=== PATIENT | male | born 1970 | race African-American/Black ===

== ENCOUNTER 2018-12-24 04:49 | Emergency (ER) | payer MEDICAID ==
[~2018-12-24] VITALS: Ht 193 cm; Wt 105.0 kg
[~2018-12-24 04:49] MED LIST: AMLO5TAB88 PO; CLON0.1T PO; GLIP5TAB12 MT; MAX PO; METF-416 MT; METO-539 PO; PRAV20TA PO
[2018-12-24] MEDS ORDERED: ASPIRIN 81MG TABLET PO ONE (06:30)
[2018-12-24] MEDS ORDERED: NITROGLYCERIN 0.4MG TABLET SL SL PRN (06:30)
[2018-12-24 07:12] LABS: BASOPHILS % 1.3 % (0.0-2.0); EOSINOPHILS % 3.5 % (0.0-5.0); HEMATOCRIT. 45.3 % (42.0-52.0); HEMOGLOBIN. 15.7 g/dL (14.0-18.0); LYMPHOCYTES % 22.5 % (20.0-50.0); MEAN CORPUSCULAR VOLUME 89.4 fL (80.0-94.0); MEAN PLATELET VOLUME 9.7 fl (7.4-10.4); MONOCYTES % 4.7 % (2.0-8.0); PLATELET 165 x1000/uL (130-400); RED BLOOD CELL COUNT 5.07 mill/uL (4.7-6.1); RED CELL DISTRIBUTION WIDTH 12.9 % (11.6-14.6)
[2018-12-24 07:13] LABS: CHLORIDE 105 mEq/L (98-107)
[2018-12-24] MEDS ORDERED: HYDROCODONE/ACETAMINOPHEN 5/325MG TABLET PO ONE (07:45)
[2018-12-24 11:17] VITALS: BP 157/98
== END 2018-12-24 11:19 | disposition home or self-care (01) ==
LOC: ER 04:49
DX: R07.89 Other chest pain (principal); E11.65 Type 2 diabetes mellitus with hyperglycemia; I10 Essential (primary) hypertension; M19.90 Unspecified osteoarthritis, unspecified site; F12.10 Cannabis abuse, uncomplicated; F17.210 Nicotine dependence, cigarettes, uncomplicated; Z79.84 Long term (current) use of oral hypoglycemic drugs
CPT/HCPCS: 36415; 71045; 83880; 84484; 93005; 99284

== ENCOUNTER 2019-10-07 18:35 | Inpatient (IN) | payer MEDICAID ==
[~2019-10-07] VITALS: Ht 193 cm; Wt 108.9 kg
[2019-10-08 00:21] LABS: CHLORIDE 104 mEq/L (98-107)
[2019-10-08 00:30] LABS: BASOPHILS % 0.9 % (0.0-2.0); EOSINOPHILS % 3.5 % (0.0-5.0); HEMATOCRIT. 39.6 % (42.0-52.0); HEMOGLOBIN. 14.1 g/dL (14.0-18.0); LYMPHOCYTES % 23.7 % (20.0-50.0); MEAN CORPUSCULAR HEMOGLOBIN 31.5 pg (28.0-32.0); MEAN CORPUSCULAR VOLUME 88.3 fL (80.0-94.0); MEAN PLATELET VOLUME 10.1 fl (7.4-10.4); MONOCYTES % 7.2 % (2.0-8.0); NEUTROPHILS % 64.7 % (40.0-76.0); PLATELET 160 x1000/uL (130-400); RED BLOOD CELL COUNT 4.48 mill/uL (4.7-6.1); RED CELL DISTRIBUTION WIDTH 13.2 % (11.6-14.6)
[2019-10-08] MEDS ORDERED: ASPIRIN 81MG TABLET PO NR (00:45)
[2019-10-08] MEDS: SODIUM CHLORIDE 0.9% 1,000 ML IV NR ×2 (01:35→03:17)
[2019-10-08] MEDS ORDERED: HYDROCODONE/ACETAMINOPHEN 5/325MG TABLET PO PRN ×2 (05:30→06:00)
[2019-10-08] MEDS ORDERED: INSULIN LISPRO 100 UNITS/ML SUBCUT NR (05:30)
[2019-10-08] MEDS ORDERED: ZOLPIDEM TARTRATE 5MG TABLET PO PRN (05:45)
[2019-10-08] MEDS ORDERED: DEXTROSE 50% WATER 50ML SYRINGE IV PRN (05:45)
[2019-10-08 05:55] VITALS: BP 167/105
[2019-10-08] MEDS: BLOOD SUGAR DIAGNOSTIC STRIP TEST SCH ×4 (07:40→21:57)
[2019-10-08 08:00] VITALS: BP 155/91
[2019-10-08] MEDS: AMLODIPINE 5MG TABLET PO SCH ×2 (08:56→22:34)
[2019-10-08] MEDS: METOPROLOL TARTRATE 50MG TABLET PO SCH ×2 (08:58→22:34)
[2019-10-08] MEDS: CLONIDINE 0.1MG TABLET PO SCH ×2 (08:58→22:34)
[2019-10-08] MEDS ORDERED: ENOXAPARIN 30MG/0.3ML SYR SUBCUT SCH (09:00)
[2019-10-08] MEDS: TRIAMTERENE/HYDROCHLOROTHIAZID 75/50MG TABLET PO SCH (09:00)
[2019-10-08] MEDS: INSULIN LISPRO 100 UNITS/ML SUBCUT SCH ×4 (09:12→22:31)
[2019-10-08 12:00] VITALS: BP 128/85
[2019-10-08] MEDS: INSULIN GLARGINE UD 100 UNITS/ML SYR SUBCUT SCH ×2 (12:50→22:30)
[2019-10-08 16:00] VITALS: BP 142/91
[2019-10-08] MEDS ORDERED: REGADENOSON 0.4 MG/5 ML IV NR (17:00)
[2019-10-08 20:00] VITALS: BP 143/96
[2019-10-08] MEDS: BUDESONIDE 0.5MG/2ML NEB HHN SCH (20:27)
[2019-10-08] MEDS: IPRATROPIUM/ALBUTEROL 0.5-3(2.5)MG/3ML NEB HHN PRN (20:27)
[2019-10-08] MEDS: ENOXAPARIN 40MG/0.4ML SYR SUBCUT SCH (22:35)
[2019-10-09] VITALS: BP 146/92
[2019-10-09 04:00] VITALS: BP 144/103
[2019-10-09] MEDS: BLOOD SUGAR DIAGNOSTIC STRIP TEST SCH ×2 (07:58→12:44)
[2019-10-09 08:00] VITALS: BP 128/84
[2019-10-09] MEDS: INSULIN LISPRO 100 UNITS/ML SUBCUT SCH ×2 (08:44→15:22)
[2019-10-09] MEDS: AMLODIPINE 5MG TABLET PO SCH (08:45)
[2019-10-09] MEDS: TRIAMTERENE/HYDROCHLOROTHIAZID 75/50MG TABLET PO SCH (08:45)
[2019-10-09] MEDS: CLONIDINE 0.1MG TABLET PO SCH (08:45)
[2019-10-09] MEDS: ENOXAPARIN 40MG/0.4ML SYR SUBCUT SCH (08:45)
[2019-10-09] MEDS ORDERED: ASPIRIN 81MG TABLET PO SCH (09:00)
[2019-10-09] MEDS: METOPROLOL TARTRATE 50MG TABLET PO SCH (09:30)
[2019-10-09] MEDS: INSULIN GLARGINE UD 100 UNITS/ML SYR SUBCUT SCH (10:15)
[2019-10-09] MEDS: BUDESONIDE 0.5MG/2ML NEB HHN SCH (10:28)
[2019-10-09] MEDS: IPRATROPIUM/ALBUTEROL 0.5-3(2.5)MG/3ML NEB HHN PRN (10:28)
[2019-10-09 12:00] VITALS: BP 118/80
[2019-10-09 13:09] LABS: *AMPHETAMINES SCREEN URINE NEGATIVE (NEGATIVE); *BARBITURATES SCREEN URINE NEGATIVE (NEGATIVE); *BENZODIAZEPINES SCREEN URINE NEGATIVE (NEGATIVE)
[2019-10-09 13:10] LABS: *COCAINE SCREEN URINE NEGATIVE (NEGATIVE); CANNABINOID URINE SCREEN PRESUMTIVE POSITIVE (NEGATIVE); OPIATES URINE SCREEN NEGATIVE (NEGATIVE); PHENCYCLIDINE URINE SCREEN NEGATIVE (NEGATIVE)
[2019-10-09] MEDS ORDERED: FLUT1DIS3 INH (14:14)
[2019-10-09] MEDS ORDERED: ALBU18HF2 IH (14:14)
[2019-10-09] MEDS ORDERED: INSU100I28 SQ (14:14)
[2019-10-09] MEDS ORDERED: REGADENOSON 0.4 MG/5 ML IV ONE (14:25)
[2019-10-09 14:55] VITALS: BP 139/90
[2019-10-09 16:00] VITALS: BP 136/90
[2019-10-09 16:54] LABS: METHADONE URINE SCREEN NEGATIVE (NEGATIVE)
[2019-10-09] MEDS ORDERED: INSULIN GLARGINE UD 100 UNITS/ML SYR SUBCUT SCH (22:00)
== END 2019-10-09 17:05 | disposition home or self-care (01) | DRG 203 ==
LOC: ER 18:35 → 7WST 10-08 01:31 → EDBEDREQ 10-08 01:37 → ENRESERV 10-08 03:47
PROVIDERS: ADMIT Internal Medicine; ATTEND Internal Medicine
DX: M94.0 Chondrocostal junction syndrome [Tietze] (principal); E11.65 Type 2 diabetes mellitus with hyperglycemia; E44.1 Mild protein-calorie malnutrition; E78.00 Pure hypercholesterolemia, unspecified; E78.5 Hyperlipidemia, unspecified; E87.1 Hypo-osmolality and hyponatremia; F17.210 Nicotine dependence, cigarettes, uncomplicated; M19.90 Unspecified osteoarthritis, unspecified site; I10 Essential (primary) hypertension; Z82.49 Family history of ischemic heart disease and other diseases of the circulatory system; Z79.84 Long term (current) use of oral hypoglycemic drugs; Z79.899 Other long term (current) drug therapy; Z68.29 Body mass index [BMI] 29.0-29.9, adult; Z71.6 Tobacco abuse counseling
CPT/HCPCS: 36415; 71045; 78452; 80053; 80305; 82962; 83036; 83880; 84484; 85025; 93005; 93017; 93306; 94640; 99285; A9500; J1650; J1815; J2785; J7626

== ENCOUNTER 2021-05-31 10:38 | Emergency (ER) | payer MEDICAID ==
[~2021-05-31] VITALS: Ht 182.9 cm; Wt 105.0 kg
[~2021-05-31 10:38] MED LIST changes: +ALBU18HF2 IH; +FLUT1DIS3 INH; +INSU100I28 SQ
[2021-05-31] MEDS ORDERED: IBUPROFEN 400MG TABLET PO ONE (11:30)
[2021-05-31] MEDS ORDERED: ACETAMINOPHEN 325MG TABLET PO ONE (11:30)
[2021-05-31 13:58] VITALS: BP 165/87
[2021-05-31] MEDS ORDERED: NAPR-1176 MT ×2 (14:34)
[2021-05-31] MEDS ORDERED: MELO-105 MT (14:54)
== END 2021-05-31 14:57 | disposition home or self-care (01) ==
LOC: ER 10:38
DX: S09.8XXA Other specified injuries of head, initial encounter (principal); M54.50 Low back pain, unspecified; E11.9 Type 2 diabetes mellitus without complications; E78.00 Pure hypercholesterolemia, unspecified; I10 Essential (primary) hypertension; J45.909 Unspecified asthma, uncomplicated; M19.90 Unspecified osteoarthritis, unspecified site; F12.10 Cannabis abuse, uncomplicated; Z79.84 Long term (current) use of oral hypoglycemic drugs; W07.XXXA Fall from chair, initial encounter; Y93.89 Activity, other specified; Y92.89 Other specified places as the place of occurrence of the external cause; Y99.8 Other external cause status
CPT/HCPCS: 72110; 99283

== ENCOUNTER 2022-01-17 13:27 | Emergency (ER) | payer OTHER, MEDICAID ==
[~2022-01-17] VITALS: Ht 188 cm; Wt 107.0 kg
[~2022-01-17 13:27] MED LIST changes: +MELO-105 MT
[2022-01-17] MEDS ORDERED: MORPHINE SULFATE 4 MG/ML CPJ (NOT FOR IM USE) IV STA (14:09)
[2022-01-17] MEDS ORDERED: ONDANSETRON HCL 4MG/2ML INJ IV STA (14:09)
[2022-01-17] MEDS ORDERED: SODIUM CHLORIDE 0.9% 1,000 ML IV ONE (14:15)
[2022-01-17] MEDS ORDERED: LABETALOL 5MG/ML SYR 20 MG/4 ML SYRINGE IV ONE (14:15)
[2022-01-17 15:24] LABS: BASOPHILS % 0.3 % (0.0-2.0); EOSINOPHILS % 0.5 % (0.0-5.0); HEMATOCRIT. 45.9 % (42.0-52.0); HEMOGLOBIN. 15.8 g/dL (14.0-18.0); LYMPHOCYTES % 7.8 % (20.0-50.0); MEAN CORPUSCULAR HEMOGLOBIN 30.1 pg (28.0-32.0); MEAN CORPUSCULAR VOLUME 87.7 fL (80.0-94.0); MEAN PLATELET VOLUME 9.3 fl (7.4-10.4); MONOCYTES % 4.5 % (2.0-8.0); NEUTROPHILS % 86.9 % (40.0-76.0); PLATELET 160 x1000/uL (130-400); RED BLOOD CELL COUNT 5.24 mill/uL (4.7-6.1); RED CELL DISTRIBUTION WIDTH 12.6 % (11.6-14.6)
[2022-01-17 15:27] LABS: CLARITY URINE CLEAR (CLEAR); COLOR URINE YELLOW (YELLOW); KETONES URINE TRACE (NEGATIVE); LEUKOCYTE ESTERASE URINE NEGATIVE (NEGATIVE); NITRITE URINE NEGATIVE (NEGATIVE); OCCULT BLOOD URINE NEGATIVE (NEGATIVE); PH URINE 7.5 (4.5-8.0); PROTEIN URINE 1+ (NEGATIVE); SPECIFIC GRAVITY URINE 1.024 (1.005-1.030); UROBILINOGEN URINE 0.2 E.U./dL (0.2-1.0)
[2022-01-17 15:28] LABS: CHLORIDE 100 mEq/L (98-107)
[2022-01-17] MEDS ORDERED: MORPHINE SULFATE 4 MG/ML CPJ (NOT FOR IM USE) IV ONE (16:15)
[2022-01-17] MEDS ORDERED: HYDRALAZINE 20MG/ML VIAL IV ONE ×3 (16:15→19:15)
[2022-01-17] MEDS ORDERED: CLONIDINE 0.2MG TABLET PO ONE (17:45)
[2022-01-17] MEDS ORDERED: IOHEXOL-350 100 ML BOTTLE ONE (17:48)
[2022-01-17] MEDS ORDERED: METOCLOPRAMIDE HCL 10MG/2ML VIAL IV ONE (18:15)
[2022-01-17 19:12] VITALS: BP 120/65
== END 2022-01-17 19:25 | disposition short-term general hospital (02) ==
LOC: ER 13:27
DX: E11.65 Type 2 diabetes mellitus with hyperglycemia (principal); I10 Essential (primary) hypertension; R51.9 Headache, unspecified; E78.00 Pure hypercholesterolemia, unspecified; J45.909 Unspecified asthma, uncomplicated; M19.90 Unspecified osteoarthritis, unspecified site; F12.10 Cannabis abuse, uncomplicated; Z79.84 Long term (current) use of oral hypoglycemic drugs
CPT/HCPCS: 36415; 70496; 71045; 80053; 81003; 82962; 83690; 84484; 85025; 93005; 96361; 96374; 96375; 96376; 99291; J0360; J2270; J2405; J2765; J3490; J7030; Q9967; 99285

== ENCOUNTER 2023-05-21 14:35 | Emergency (ER) | payer MEDICAID ==
[~2023-05-21 14:35] MED LIST changes: -CLON0.1T PO; +GABA-532 PO; -GLIP5TAB12 MT; -MELO-105 MT; +METO-293 PO; -METO-539 PO; +ONDA4TAB50 MT; +PANT40TA51 MT
[2023-05-21 14:42] VITALS: PULSE 107; RESP 18
[2023-05-22] MEDS ORDERED: CEPH500C2 PO (23:01)
[2023-05-22] MEDS ORDERED: ATOR-2 PO (23:01)
[2023-05-22] MEDS ORDERED: METO10TA3 PO (23:01)
[2023-05-22] MEDS ORDERED: CYCL10TA21 PO (23:01)
== END 2023-05-21 16:13 | disposition left against medical advice (07) ==
LOC: ER 14:43
DX: K92.0 Hematemesis (principal); Z53.21 Procedure and treatment not carried out due to patient leaving prior to being seen by health care provider
CPT/HCPCS: 99281

== ENCOUNTER 2023-05-22 11:09 | Inpatient (IN) | payer MEDICAID, OTHER ==
[~2023-05-22] VITALS: Ht 193 cm; Wt 85.7 kg
[2023-05-22] MEDS ORDERED: ONDANSETRON HCL 4MG/2ML INJ IV STA (11:26)
[2023-05-22] MEDS ORDERED: PANTOPRAZOLE SODIUM 40 MG/VIAL IV ONE (11:30)
[2023-05-22] MEDS ORDERED: SODIUM CHLORIDE 0.9% 1,000 ML IV ONE (11:30)
[2023-05-22 12:25] LABS: CHLORIDE 90 mEq/L (98-107); INDEX HEMOLYSI 1 (1-3); INDEX ICTERIC 1 (1-4); INDEX LIPEMIC 1 (1-3); POTASSIUM 3.1 mEq/L (3.5-5.1); SODIUM 135 mEq/L (136-145)
[2023-05-22 12:30] LABS: HEMATOCRIT. 45.2 % (42.0-52.0); HEMOGLOBIN. 15.6 g/dL (14.0-18.0); MEAN CORPUSCULAR HEMOGLOBIN 28.9 pg (28.0-32.0); MEAN CORPUSCULAR HGB CONC 34.5 g/dL (31.0-37.0); MEAN CORPUSCULAR VOLUME 83.8 fL (80.0-94.0); MEAN PLATELET VOLUME 9.8 fl (7.4-10.4); PLATELET 290 x1000/uL (130-400); RED BLOOD CELL COUNT 5.39 mill/uL (4.7-6.1); RED CELL DISTRIBUTION WIDTH 14.6 % (11.6-14.6); WHITE BLOOD COUNT 20.8 x1000/uL (4.5-11.0)
[2023-05-22 12:35] LABS: ALANINE AMINOTRANSFERASE 25 IU/L (13-61); ALBUMIN 4.8 g/dL (3.4-5.0); ASPARTATE AMINOTRANSFERASE 10 IU/L (15-37); BILIRUBIN TOTAL 1.7 mg/dL (0.1-1.0); CALCIUM 10.4 mg/dL (8.5-10.1); CARBON DIOXIDE 34 mEq/L (21-32); CREATININE 1.8 mg/dL (0.6-1.3); GLUCOSE 363 mg/dL (70-105); PROTEIN TOTAL 8.9 g/dL (6.0-8.3); TROPONIN I HIGH SENSITIVITY 22 ng/L (<78); UREA NITROGEN BLOOD 31 mg/dL (7-21)
[2023-05-22 12:37] LABS: PROTHROMBIN TIME 10.7 sec (9.6-11.0)
[2023-05-22 12:54] LABS: DIFFERENTIAL COMMENT 1
[2023-05-22 12:55] LABS: PLATELET ESTIMATE NORMAL
[2023-05-22] MEDS ORDERED: POTASSIUM CHLORIDE INJ 30 MEQ in DEXT 5%/0.9% NACL 1,000 ML IV SCH (13:15)
[2023-05-22] MEDS ORDERED: MAGNESIUM/ALUMINUM HYDROXIDE/SIMETHICONE 30ML UDC PO PRN (15:00)
[2023-05-22] MEDS ORDERED: DEXTROSE 50% WATER 50ML SYRINGE IV PRN (15:00)
[2023-05-22] MEDS: SODIUM CHLORIDE 0.9% 1,000 ML IV SCH ×2 (15:00→22:23)
[2023-05-22] MEDS ORDERED: IPRATROPIUM/ALBUTEROL 0.5-3(2.5)MG/3ML NEB HHN PRN (15:00)
[2023-05-22] MEDS ORDERED: ONDANSETRON HCL 4MG/2ML INJ IV PRN (15:00)
[2023-05-22] MEDS ORDERED: ACETAMINOPHEN 325MG TABLET PO PRN (15:00)
[2023-05-22 15:25] LABS: PHOSPHORUS 1.9 mg/dL (2.5-4.9); T4 FREE 1.58 ng/dL (0.76-1.46); THYROID STIMULATING HORMONE 0.47 uIU/mL (0.36-3.74)
[2023-05-22] MEDS: AMLODIPINE 10MG TABLET PO SCH (15:30)
[2023-05-22] MEDS ORDERED: POTASSIUM PHOS,M-BASIC-D-BASIC 15 MMOL in DEXT 5% WATER 245 ML IV NR (16:00)
[2023-05-22 16:24] LABS: LACTIC ACID 3.4 mmol/L (0.4-2.0)
[2023-05-22] MEDS: BLOOD SUGAR DIAGNOSTIC STRIP TEST SCH ×2 (17:00→22:13)
[2023-05-22] MEDS: CLONIDINE 0.1MG TABLET PO PRN (17:23)
[2023-05-22 17:25] LABS: HEMATOCRIT 44.2 % (42.0-52.0); HEMOGLOBIN 15.1 g/dL (14.0-18.0)
[2023-05-22] MEDS: METOCLOPRAMIDE HCL 10MG/2ML VIAL IV SCH (18:00)
[2023-05-22 18:23] LABS: BETA HYDROXYBUTYRATE 0.7 mMol/L (0.0-0.3); ETHANOL BLOOD < 10 mg/dL (<10)
[2023-05-22] MEDS: INSULIN LISPRO 100 UNITS/ML SUBCUT SCH ×2 (19:05→22:13)
[2023-05-22 22:00] VITALS: BP 109/78; PULSE 108; RESP 20; TEMP 97.8
[2023-05-22] MEDS: PANTOPRAZOLE SODIUM 40 MG/VIAL IV SCH (22:21)
[2023-05-22] MEDS ORDERED: CEPH500C2 PO (23:01)
[2023-05-22] MEDS ORDERED: METO10TA3 PO (23:01)
[2023-05-22] MEDS ORDERED: ATOR-2 PO (23:01)
[2023-05-22] MEDS ORDERED: CYCL10TA21 PO (23:01)
[2023-05-22 23:41] LABS: HEMATOCRIT 41.8 % (42.0-52.0); HEMOGLOBIN 14.3 g/dL (14.0-18.0)
[2023-05-23] VITALS (7 sets, daily range): BP systolic 110–177; BP diastolic 78–114; PULSE 91–112; RESP 15–20; TEMP 97.1–98.8
[2023-05-23] MEDS: METOCLOPRAMIDE HCL 10MG/2ML VIAL IV SCH ×4 (00:09→18:00)
[2023-05-23] MEDS: SODIUM CHLORIDE 0.9% 1,000 ML IV SCH ×2 (05:27→16:27)
[2023-05-23 06:39] LABS: CLARITY URINE CLEAR (CLEAR); COLOR URINE YELLOW (YELLOW); GLUCOSE URINE 2+ (NEGATIVE); KETONES URINE 1+ (NEGATIVE); LEUKOCYTE ESTERASE URINE NEGATIVE (NEGATIVE); NITRITE URINE NEGATIVE (NEGATIVE); OCCULT BLOOD URINE NEGATIVE (NEGATIVE); PROTEIN URINE 1+ (NEGATIVE); SPECIFIC GRAVITY URINE 1.029 (1.005-1.030)
[2023-05-23 06:41] LABS: BACTERIA URINE NONE SEEN; RBC URINE 0-2 /hpf (0-2); SQUAMOUS EPITHELIAL CELL URINE NONE SEEN /lpf (RARE/1+); YEAST URINE NONE SEEN
[2023-05-23 07:00] LABS: PROTHROMBIN TIME 10.6 sec (9.6-11.0)
[2023-05-23] MEDS: BLOOD SUGAR DIAGNOSTIC STRIP TEST SCH ×4 (07:06→21:51)
[2023-05-23 07:36] LABS: BASOPHILS % 0.4 % (0.0-2.0); EOSINOPHILS % 0.2 % (0.0-5.0); HEMATOCRIT. 41.1 % (42.0-52.0); HEMOGLOBIN. 14.6 g/dL (14.0-18.0); LYMPHOCYTES % 11.1 % (20.0-50.0); MEAN CORPUSCULAR HEMOGLOBIN 29.7 pg (28.0-32.0); MEAN CORPUSCULAR HGB CONC 35.5 g/dL (31.0-37.0); MEAN CORPUSCULAR VOLUME 83.6 fL (80.0-94.0); MEAN PLATELET VOLUME 9.8 fl (7.4-10.4); MONOCYTES % 7.3 % (2.0-8.0); PLATELET 242 x1000/uL (130-400); RED BLOOD CELL COUNT 4.92 mill/uL (4.7-6.1); RED CELL DISTRIBUTION WIDTH 14.3 % (11.6-14.6); WHITE BLOOD COUNT 15.6 x1000/uL (4.5-11.0)
[2023-05-23 07:40] LABS: CHLORIDE 93 mEq/L (98-107); INDEX HEMOLYSI 2 (1-3); INDEX ICTERIC 1 (1-4); INDEX LIPEMIC 1 (1-3); POTASSIUM 3.2 mEq/L (3.5-5.1); SODIUM 133 mEq/L (136-145)
[2023-05-23 08:00] LABS: ALANINE AMINOTRANSFERASE 21 IU/L (13-61); ALBUMIN 3.6 g/dL (3.4-5.0); ASPARTATE AMINOTRANSFERASE 13 IU/L (15-37); BILIRUBIN DIRECT 0.2 mg/dL (0.0-0.2); BILIRUBIN TOTAL 1.1 mg/dL (0.1-1.0); CALCIUM 8.5 mg/dL (8.5-10.1); CARBON DIOXIDE 28 mEq/L (21-32); CREATININE 1.2 mg/dL (0.6-1.3); GLUCOSE 228 mg/dL (70-105); IRON 72 ug/dL (50-175); PROTEIN TOTAL 7.6 g/dL (6.0-8.3); TOTAL IRON BINDING CAPACITY 267 ug/dL (250-450); UREA NITROGEN BLOOD 31 mg/dL (7-21)
[2023-05-23 08:10] LABS: WBC URINE 0-2 /hpf (0-2)
[2023-05-23] MEDS: INSULIN LISPRO 100 UNITS/ML SUBCUT SCH ×4 (08:10→21:50)
[2023-05-23 08:12] LABS: HYALINE CASTS URINE 0-5 /lpf
[2023-05-23] MEDS ORDERED: POTASSIUM CHLORIDE 20MEQ TABLET SR PO NR (08:30)
[2023-05-23 08:33] LABS: INDEX HEMOLYSI 1 (1-3)
[2023-05-23 09:04] LABS: VITAMIN B12 SERUM 611 pg/mL (211-911)
[2023-05-23] MEDS: PANTOPRAZOLE SODIUM 40 MG/VIAL IV SCH ×2 (09:06→21:49)
[2023-05-23] MEDS: AMLODIPINE 10MG TABLET PO SCH (09:12)
[2023-05-23 10:25] LABS: *AMPHETAMINES SCREEN URINE NEGATIVE (NEGATIVE); *BARBITURATES SCREEN URINE NEGATIVE (NEGATIVE); *BENZODIAZEPINES SCREEN URINE NEGATIVE (NEGATIVE); *COCAINE SCREEN URINE NEGATIVE (NEGATIVE); CANNABINOID URINE SCREEN PRESUMTIVE POSITIVE (NEGATIVE); ECSTASY MDMA SCREEN URINE NEGATIVE (NEGATIVE); OPIATES URINE SCREEN NEGATIVE (NEGATIVE); PHENCYCLIDINE URINE SCREEN NEGATIVE (NEGATIVE)
[2023-05-23] MEDS ORDERED: ACETAMINOPHEN 325MG TABLET PO PRN (11:00)
[2023-05-23 11:14] LABS: HEPATITIS B SURFACE ANTIGEN NEGATIVE
[2023-05-23 11:42] LABS: HEPATITIS B CORE AB IGM NEGATIVE; HEPATITIS C VIR.AB 0.05 INDEXVAL (0.00-0.80)
[2023-05-23 11:44] LABS: HEPATITIS A AB IGM NEGATIVE (NEGATIVE)
[2023-05-23] MEDS: CLONIDINE 0.1MG TABLET PO PRN (16:26)
[2023-05-24] VITALS: BP 143/101; PULSE 94; RESP 20; TEMP 97.6
[2023-05-24] MEDS: METOCLOPRAMIDE HCL 10MG/2ML VIAL IV SCH ×3 (02:22→12:24)
[2023-05-24] MEDS: SODIUM CHLORIDE 0.9% 1,000 ML IV SCH (02:25)
[2023-05-24 04:00] VITALS: BP 156/90; PULSE 91; RESP 20; TEMP 98.2
[2023-05-24] MEDS: BLOOD SUGAR DIAGNOSTIC STRIP TEST SCH ×2 (05:39→12:05)
[2023-05-24] MEDS: INSULIN LISPRO 100 UNITS/ML SUBCUT SCH ×2 (06:21→12:26)
[2023-05-24 06:54] LABS: HEMATOCRIT 38.8 % (42.0-52.0); HEMOGLOBIN 13.5 g/dL (14.0-18.0); MEAN CORPUSCULAR HEMOGLOBIN 29.3 pg (28.0-32.0); MEAN CORPUSCULAR HGB CONC 34.7 g/dL (31.0-37.0); MEAN CORPUSCULAR VOLUME 84.3 fL (80.0-94.0); PLATELET 212 x1000/uL (130-400); RED BLOOD CELL COUNT 4.61 mill/uL (4.7-6.1); RED CELL DISTRIBUTION WIDTH 13.6 % (11.6-14.6); WHITE BLOOD COUNT 10.8 x1000/uL (4.5-11.0)
[2023-05-24 07:19] LABS: CHLORIDE 97 mEq/L (98-107); INDEX HEMOLYSI 1 (1-3); INDEX ICTERIC 1 (1-4); INDEX LIPEMIC 1 (1-3); POTASSIUM 3.2 mEq/L (3.5-5.1); SODIUM 135 mEq/L (136-145)
[2023-05-24 07:24] LABS: CALCIUM 8.7 mg/dL (8.5-10.1); CARBON DIOXIDE 32 mEq/L (21-32); CREATININE 1.1 mg/dL (0.6-1.3); GLUCOSE 250 mg/dL (70-105); UREA NITROGEN BLOOD 18 mg/dL (7-21)
[2023-05-24 08:00] VITALS: BP 156/97; PULSE 86; RESP 16; TEMP 97.4
[2023-05-24] MEDS: PANTOPRAZOLE SODIUM 40 MG/VIAL IV SCH (08:34)
[2023-05-24] MEDS: AMLODIPINE 10MG TABLET PO SCH (08:35)
[2023-05-24] MEDS ORDERED: POTASSIUM CHLORIDE 20MEQ TABLET SR PO NR (10:30)
[2023-05-24 10:40] VITALS: BP 149/83; PULSE 85; TEMP 97.1; O2SAT 96
[2023-05-24 12:00] VITALS: BP 135/85; PULSE 93; RESP 16; TEMP 97
== END 2023-05-24 13:10 | disposition home or self-care (01) | DRG 253 ==
LOC: ER 11:09 → EDBEDREQ 14:12 → 7WST 21:50
PROVIDERS: ADMIT Internal Medicine; ATTEND Internal Medicine
DX: K92.2 Gastrointestinal hemorrhage, unspecified (principal); N17.0 Acute kidney failure with tubular necrosis; K31.1 Adult hypertrophic pyloric stenosis; E83.39 Other disorders of phosphorus metabolism; E87.3 Alkalosis; A05.9 Bacterial foodborne intoxication, unspecified; E11.43 Type 2 diabetes mellitus with diabetic autonomic (poly)neuropathy; E11.65 Type 2 diabetes mellitus with hyperglycemia; D72.829 Elevated white blood cell count, unspecified; K22.6 Gastro-esophageal laceration-hemorrhage syndrome; E88.09 Other disorders of plasma-protein metabolism, not elsewhere classified; E83.52 Hypercalcemia; E86.0 Dehydration; E87.6 Hypokalemia; I16.9 Hypertensive crisis, unspecified; J45.909 Unspecified asthma, uncomplicated; I10 Essential (primary) hypertension; M19.90 Unspecified osteoarthritis, unspecified site; E78.00 Pure hypercholesterolemia, unspecified; F12.90 Cannabis use, unspecified, uncomplicated; M10.9 Gout, unspecified; E80.6 Other disorders of bilirubin metabolism; F10.20 Alcohol dependence, uncomplicated; A08.4 Viral intestinal infection, unspecified; Z79.4 Long term (current) use of insulin; Z91.018 Allergy to other foods; Z87.891 Personal history of nicotine dependence
CPT/HCPCS: 36415; 71045; 73630; 74176; 76700; 80048; 80053; 80076; 80305; 80320; 81003; 82010; 82607; 82746; 82962; 83036; 83540; 83550; 83605; 83735; 84100; 84145; 84439; 84443; 84484; 84550; 85014; 85018; 85025; 85027; 85044; 86705; 86709; 86803; 86850; 86900; 87340; 93005; 99291; C9113; J1815; J2405; J2765; J3480; J3490; J7030; J7042; J7060; G0480

== ENCOUNTER 2025-07-05 00:51 | Inpatient (IN) | payer OTHER, MEDICAID ==
[~2025-07-05] VITALS: Ht 193 cm; Wt 104.3 kg
[2025-07-05] VITALS (68 sets, daily range): BP systolic 64–226; BP diastolic 37–124; PULSE 69–126; RESP 11–33; TEMP 36.7–37.3632; O2SAT 96–100
[~2025-07-05 00:51] MED LIST changes: +ACET-2708 MT; -ALBU18HF2 IH; +ALBU6.7H15 INH; +AMLO10TA80 MT; -AMLO5TAB88 PO; +ASPI-1497 MT; +ATOR-388 MT; +CLOP-31 MT; +CYCL10TA21 PO; -FLUT1DIS3 INH; +GABA-1180 PO; -GABA-532 PO; +GLYB5TAB7 MT; +HYDR25TA78 MT; +INSLIS SUBCUT; +LOSA50TA41 MT; -MAX PO; -METO-293 PO; +METO10TA3 PO; -PRAV20TA PO; +[UNRECOGNIZED DRUG - CODE]
[2025-07-05] MEDS: SODIUM CHLORIDE 0.9% 1,000 ML IV ONE ×2 (01:39→03:42)
[2025-07-05] MEDS: LABETALOL 5MG/ML 4ML INJ IV ONE (01:43)
[2025-07-05 01:50] LABS: HEMATOCRIT. 43.4 % (42.0-52.0); HEMOGLOBIN. 14.8 g/dL (14.0-18.0); MEAN PLATELET VOLUME 10.3 fl (7.4-10.4); PLATELET 197 x1000/uL (130-400); RED BLOOD CELL COUNT 4.98 mill/uL (4.7-6.1); RED CELL DISTRIBUTION WIDTH 13.2 % (11.6-14.6)
[2025-07-05] MEDS: LORAZEPAM 2MG/ML UD SYRINGE IV NR (01:54)
[2025-07-05] MEDS: MORPHINE SULFATE 4 MG/ML INJ (FOR IV/IM USE) IV ONE (01:54)
[2025-07-05 01:58] LABS: CREATININE 1.6 mg/dL (0.6-1.3)
[2025-07-05 01:59] LABS: ETHANOL BLOOD < 10 mg/dL (<10); PROTEIN TOTAL 8.0 g/dL (6.0-8.3); UREA NITROGEN BLOOD 19 mg/dL (9-23)
[2025-07-05 02:00] LABS: ASPARTATE AMINOTRANSFERASE 19 IU/L (<34); TROPONIN I HIGH SENSITIVITY 23 ng/L (3.0-53)
[2025-07-05 02:01] LABS: BILIRUBIN DIRECT 0.4 mg/dL (<=3.0); BILIRUBIN TOTAL 1.3 mg/dL (0.1-1.0)
[2025-07-05] MEDS ORDERED: CEFAZOLIN 2000MG PREMIX 50 ML IV NR (02:30)
[2025-07-05 02:38] LABS: LYMPHOCYTES % MANUAL 8.0 % (20.0-50.0); MONOCYTES % MANUAL 4.0 % (2.0-8.0); NEUTROPHILS % MANUAL 88.0 % (45.0-75.0); PLATELET ESTIMATE NORMAL
[2025-07-05] MEDS: METOCLOPRAMIDE HCL 10MG/2ML VIAL IV ONE (02:52)
[2025-07-05] MEDS: HYDRALAZINE 20MG/ML VIAL IV ONE (02:53)
[2025-07-05 03:00] LABS: T4 FREE 1.78 ng/dL (0.89-1.76)
[2025-07-05] MEDS: METOCLOPRAMIDE HCL 10MG/2ML VIAL IV NR ×2 (03:02→05:55)
[2025-07-05] MEDS: INSULIN REGULAR (HUMULIN R) 1000UNITS/10ML VIAL IV ONE (03:09)
[2025-07-05] MEDS: CEFTRIAXONE 2GM/50ML 50ML IV NR (03:27)
[2025-07-05] MEDS ORDERED: DEXTROSE 50% WATER 50ML SYRINGE IV PRN (04:15)
[2025-07-05] MEDS ORDERED: IPRATROPIUM/ALBUTEROL 0.5-3(2.5)MG/3ML NEB HHN PRN (04:15)
[2025-07-05] MEDS: HYDRALAZINE HCL 25MG TABLET PO SCH (04:23)
[2025-07-05] MEDS: AMLODIPINE 10MG TABLET PO SCH (04:24)
[2025-07-05] MEDS: LOSARTAN 50 MG TABLET PO SCH (04:24)
[2025-07-05] MEDS: INSULIN REGULAR (HUMULIN R) 1000UNITS/10ML VIAL IV NR (04:33)
[2025-07-05] MEDS: BLOOD SUGAR DIAGNOSTIC STRIP TEST SCH (06:15)
[2025-07-05] MEDS: HYDRALAZINE 20MG/ML VIAL IV PRN (06:37)
[2025-07-05] MEDS: PANTOPRAZOLE SODIUM 40 MG/VIAL IV SCH ×2 (07:00→20:30)
[2025-07-05] MEDS: INSULIN LISPRO 100 UNITS/ML SUBCUT SCH (07:15)
[2025-07-05] MEDS ORDERED: NICARDIPINE 50 MG in SODIUM CHLORIDE 0.9% 230 ML IV PRN (08:00)
[2025-07-05] MEDS ORDERED: DOCUSATE SODIUM 100MG CAPSULE PO PRN (08:00)
[2025-07-05] MEDS ORDERED: GUAIFENESIN 200MG/10ML SUGAR FREE UDC PO PRN (08:00)
[2025-07-05] MEDS ORDERED: ACETAMINOPHEN 325MG TABLET PO PRN (08:00)
[2025-07-05] MEDS: LABETALOL 5MG/ML 4ML INJ IV SCH (08:11)
[2025-07-05] MEDS: CALCIUM CARBONATE 500MG TABLET CHEW PO SCH (08:22)
[2025-07-05] MEDS ORDERED: ENALAPRIL 1.25MG/ML VIAL 1ML IV SCH (09:15)
[2025-07-05] MEDS: INSULIN GLARGINE 100 UNITS/ML SUBCUT SCH (10:00)
[2025-07-05] MEDS ORDERED: LABETALOL 5MG/ML 4ML INJ IV SCH (10:00)
[2025-07-05 10:12] LABS: BG BASE EXCESS 3.5 mmol/L (-2.0-3.0); BG CARBOXYHEMOGLOBIN 1.2 % (0.5-1.5); BG DEOXYHEMOGLOBIN 2.7 % (0.0-5.0); BG FRACTION INSPIRED OXYGEN 21; BG HCO3 ACT 26.3 mmol/L (21.0-28.0); BG METHEMOGLOBIN 0.3 % (0.5-1.5); BG OXYGEN SATURATION 97.3 % (94.0-98.0); BG OXYHEMOGLOBIN 95.8 % (94.0-98.0); BG PCO2 34.6 mmHg (35.0-48.0); BG PH 7.499 (7.350-7.450); BG PO2 88.8 mmHg (83.0-108.0); BG SAMPLE SITE RIGHT BRACHIAL; BG TOTAL HEMOGLOBIN 15.4 g/dL (13.5-17.5); BG VENT MODE ROOM AIR
[2025-07-05] MEDS ORDERED: IOHEXOL-350 100 ML BOTTLE ONE (10:14)
[2025-07-05] MEDS: NICARDIPINE 50 MG in SODIUM CHLORIDE 0.9% 230 ML IV PRN (11:46)
[2025-07-05] MEDS: CLONIDINE 0.2MG TABLET PO SCH (11:52)
[2025-07-05] MEDS: MAGNESIUM 2 G PREMIX 50 ML IV ONE (12:19)
[2025-07-05] MEDS: GABAPENTIN 300MG CAPSULE PO SCH (13:24)
[2025-07-05] MEDS: SUCRALFATE 1G TABLET PO SCH (13:24)
[2025-07-05 13:46] LABS: TROPONIN I HIGH SENSITIVITY 70 ng/L (3.0-53)
[2025-07-05 14:19] LABS: HEPATITIS C AB NON REACTIVE (Neg) (Negative)
[2025-07-05 16:22] LABS: TROPONIN I HIGH SENSITIVITY 77 ng/L (3.0-53)
[2025-07-05] MEDS: ATORVASTATIN CALCIUM 40MG TABLET PO SCH (20:31)
[2025-07-05] MEDS: CEFTRIAXONE 2GM/50ML 50 ML IV SCH (22:23)
[2025-07-05 22:32] LABS: TROPONIN I HIGH SENSITIVITY 65 ng/L (3.0-53)
[2025-07-06] VITALS (53 sets, daily range): BP systolic 72–152; BP diastolic 47–100; PULSE 82–103; RESP 11–26; TEMP 36.6–37.6; O2SAT 91–100
[2025-07-06 06:40] LABS: BASOPHILS % 0.2 % (0.0-2.0); EOSINOPHILS % 0.3 % (0.0-5.0); HEMATOCRIT. 39.8 % (42.0-52.0); HEMOGLOBIN. 13.6 g/dL (14.0-18.0); LYMPHOCYTES % 14.1 % (20.0-50.0); MEAN PLATELET VOLUME 10.5 fl (7.4-10.4); MONOCYTES % 8.5 % (2.0-8.0); NEUTROPHILS % 76.9 % (40.0-76.0); PLATELET 153 x1000/uL (130-400); RED BLOOD CELL COUNT 4.50 mill/uL (4.7-6.1); RED CELL DISTRIBUTION WIDTH 13.1 % (11.6-14.6)
[2025-07-06 06:52] LABS: TRIGLYCERIDE 320.0 mg/dL (0-150); UREA NITROGEN BLOOD 28.0 mg/dL (9-23)
[2025-07-06 06:53] LABS: LDL CHOLESTEROL 103.0 mg/dL (5-100)
[2025-07-06 06:54] LABS: CREATININE 2.7 mg/dL (0.6-1.3)
[2025-07-06] MEDS: KCL 20MEQ/100ML PREMIX 100 ML IV ONE (07:59)
[2025-07-06] MEDS: LACTATED RINGERS 1,000 ML IV SCH (08:00)
[2025-07-06 09:39] LABS: CLARITY URINE CLEAR (CLEAR); COLOR URINE YELLOW (YELLOW); GLUCOSE URINE 2+ (NEGATIVE); KETONES URINE NEGATIVE (NEGATIVE); LEUKOCYTE ESTERASE URINE NEGATIVE (NEGATIVE); NITRITE URINE NEGATIVE (NEGATIVE); OCCULT BLOOD URINE NEGATIVE (NEGATIVE); PH URINE 5.5 (4.5-8.0); PROTEIN URINE 2+ (NEGATIVE); SPECIFIC GRAVITY URINE 1.064 (1.005-1.030); UROBILINOGEN URINE 0.2 E.U./dL (0.2-1.0)
[2025-07-06 09:54] LABS: *AMPHETAMINES SCREEN URINE NEGATIVE (NEGATIVE)
[2025-07-06 09:55] LABS: *BARBITURATES SCREEN URINE NEGATIVE (NEGATIVE); *BENZODIAZEPINES SCREEN URINE NEGATIVE (NEGATIVE); *COCAINE SCREEN URINE NEGATIVE (NEGATIVE); CANNABINOID URINE SCREEN PRESUMPTIVE POSITIVE (NEGATIVE); ECSTASY MDMA SCREEN URINE NEGATIVE (NEGATIVE); METHADONE URINE SCREEN NEGATIVE (NEGATIVE); OPIATES URINE SCREEN PRESUMPTIVE POSITIVE (NEGATIVE); PHENCYCLIDINE URINE SCREEN NEGATIVE (NEGATIVE)
[2025-07-06 10:42] LABS: RBC URINE 0-2 /hpf (0-2); SQUAMOUS EPITHELIAL CELL URINE RARE /lpf (RARE/1+); WBC URINE 0-2 /hpf (0-2)
[2025-07-06 10:43] LABS: BACTERIA URINE 1+
[2025-07-06] MEDS: ACETAMINOPHEN 325MG TABLET PO PRN (14:18)
[2025-07-06] MEDS ORDERED: CLONIDINE 0.1MG TABLET PO PRN (15:30)
[2025-07-06] MEDS: LACTATED RINGERS 1,000 ML IV ONE (16:43)
[2025-07-06] MEDS: ONDANSETRON HCL 4MG/2ML INJ IV PRN (17:15)
[2025-07-07] VITALS: BP 137/77; PULSE 77; RESP 18; TEMP 36.5; O2SAT 99
[2025-07-07 04:00] VITALS: BP 173/94; PULSE 85; RESP 20; TEMP 36.4; O2SAT 100
[2025-07-07 06:41] LABS: PLATELET 140 x1000/uL (130-400); RED BLOOD CELL COUNT 4.64 mill/uL (4.7-6.1); RED CELL DISTRIBUTION WIDTH 13.2 % (11.6-14.6)
[2025-07-07 06:45] LABS: CREATININE 2.0 mg/dL (0.6-1.3); UREA NITROGEN BLOOD 29.0 mg/dL (9-23)
[2025-07-07 08:00] VITALS: BP 165/92; PULSE 93; RESP 18; TEMP 36.6; O2SAT 99
[2025-07-07] MEDS: ASPIRIN 81MG TABLET PO SCH (09:04)
[2025-07-07 12:00] VITALS: BP 180/90; PULSE 105; RESP 20; TEMP 37.4; O2SAT 100
[2025-07-07] MEDS: POTASSIUM CHLORIDE 20MEQ TABLET SR PO SCH (13:36)
[2025-07-07] MEDS ORDERED: METHYLPREDNISOLONE SOD SUCC 40MG/ML (ACT-O-VIAL) IV SCH (14:00)
[2025-07-07] MEDS ORDERED: METF-416 MT (16:16)
[2025-07-07] MEDS ORDERED: AMLO10TA80 MT (16:16)
[2025-07-07] MEDS ORDERED: ATOR-388 MT (16:16)
[2025-07-07] MEDS ORDERED: CLOP-31 MT (16:16)
[2025-07-07] MEDS ORDERED: INSU100I28 SQ (16:16)
[2025-07-07] MEDS ORDERED: INSLIS SUBCUT (16:16)
[2025-07-07] MEDS ORDERED: PANT40TA51 MT (16:16)
[2025-07-07] MEDS ORDERED: LOSA50TA41 MT (16:16)
[2025-07-07] MEDS ORDERED: HYDR25TA78 MT (16:16)
[2025-07-07] MEDS ORDERED: ALBU18HF2 IH (16:16)
[2025-07-07] MEDS ORDERED: SUCR1TAB MT (16:16)
[2025-07-07] MEDS ORDERED: METO10TA3 PO (16:16)
[2025-07-07] MEDS: IPRATROPIUM/ALBUTEROL 0.5-3(2.5)MG/3ML NEB HHN PRN (17:04)
[2025-07-07 17:09] VITALS: PULSE 80; RESP 18; O2SAT 97
[2025-07-07 18:09] VITALS: BP 149/77; PULSE 102; RESP 20; TEMP 98.9
[2025-07-07] MEDS ORDERED: INSULIN LISPRO 100 UNITS/ML SUBCUT SCH (18:10)
== END 2025-07-07 18:45 | disposition home or self-care (01) | DRG 469 ==
LOC: ER 00:51 → EDBEDREQ 01:54 → 5WST 03:04 → EDBEDREQ 03:07 → EDBEDREQTM 03:07 → ENRESERV 03:21 → CVICU 10:52 → 7WST 07-06 13:38
PROVIDERS: ADMIT Hospitalist; ATTEND Hospitalist
DX: N17.9 Acute kidney failure, unspecified (principal); K22.6 Gastro-esophageal laceration-hemorrhage syndrome; E87.3 Alkalosis; I16.1 Hypertensive emergency; I21.A1 Myocardial infarction type 2; I69.351 Hemiplegia and hemiparesis following cerebral infarction affecting right dominant side; K92.0 Hematemesis; R65.10 Systemic inflammatory response syndrome (SIRS) of non-infectious origin without acute organ dysfunction; E11.319 Type 2 diabetes mellitus with unspecified diabetic retinopathy without macular edema; I10 Essential (primary) hypertension; K29.70 Gastritis, unspecified, without bleeding; R79.89 Other specified abnormal findings of blood chemistry; E11.43 Type 2 diabetes mellitus with diabetic autonomic (poly)neuropathy; K52.9 Noninfective gastroenteritis and colitis, unspecified; E78.5 Hyperlipidemia, unspecified; E83.42 Hypomagnesemia; G25.0 Essential tremor; K31.84 Gastroparesis; H43.10 Vitreous hemorrhage, unspecified eye; Z79.899 Other long term (current) drug therapy; Z91.018 Allergy to other foods; Z79.4 Long term (current) use of insulin; Z91.148 Patient's other noncompliance with medication regimen for other reason; Z79.82 Long term (current) use of aspirin; Z79.84 Long term (current) use of oral hypoglycemic drugs; Z87.19 Personal history of other diseases of the digestive system
CPT/HCPCS: 36415; 36600; 71250; 71275; 74176; 80048; 80061; 80076; 80305; 80320; 81003; 82010; 82088; 82375; 82805; 82962; 83036; 83605; 83735; 83880; 84145; 84244; 84439; 84443; 84481; 84484; 85014; 85018; 85025; 85027; 86705; 87340; 93005; 93970; 94070; 94640; 96361; 96374; 96375; 99291; A4615; J0360; J0690; J0696; J1815; J2060; J2270; J2405; J2470; J2765; J2919; J3475; J3480; J3490; J7030; J7050; Q9967; G0480